=== PATIENT | male | born 1955 | race Caucasian/White ===

== ENCOUNTER 2021-12-29 15:10 | Emergency (ER) | payer OTHER ==
[2021-12-29] MEDS ORDERED: Mineral Oil ENEMA ONE (15:46)
== END 2021-12-29 16:40 | disposition home or self-care (01) ==
LOC: MADERS 15:10
DX: K59.00 Constipation, unspecified (principal); N13.9 Obstructive and reflux uropathy, unspecified; I10 Essential (primary) hypertension; E78.00 Pure hypercholesterolemia, unspecified
CPT/HCPCS: 99283